=== PATIENT | female | born 1980 | race Caucasian/White ===

== ENCOUNTER 2024-12-11 11:50 | Day surgery (SDC) | payer BC, SELFPAY ==
--- OUTSIDE RECORDS SUMMARY | 2024-11-28 16:39 | XMS_ITS | Patient Health Record ---
Author Organization [facility] Address [address] [place] [address] Care Team Providers Care Crane Mechanic Name Role Phone Neville Smith Primary Care Provider Len Arguello Jr Unavailable Allergies Allergen (clinical drug ingredient) Drug/Non Drug Allergy documented on EMR Reaction Allergy Type Onset Date Status doxycycline Doxycycline rash Drug Allergy Act robi Reason For Referral Referring Provider First Name Neville Referring Provider Last Name Maciel Costa ra Referring Provider Speciality Internal M edicine Referred Organization [facility] Referred Provider Len Recinos Jr Referred Address [address] [facility],[place], [place],[address],[place] Referred Provider Specialty Gastroentero logy General Notes Jennifer Aldridge 2024 11:33:33 AM >REQUESTED AN O BLUE REFERRAL FROM DR NEVILLE NAVAS FOR APPT WITH DR RECINOS ON [phone] Referral Priority Routine Medications Medication SIG (Take, Route, Frequency, Duration) Notes Start Date End Date Status Clindamycin Phos-Benzoyl Perox 1-5 % 1 application Externally Once a day 11/18/2024 Active Multi Vitamin - 1 tablet Orally Once a day Active Tretinoin 0.025 % 1 application in the evening to face Externally Once a day 11/18/2024 Active Contrave 8-90 MG 1 tablet in the morn ing Orally Once a day for 30 day(s) 11/18/2024 Active Levothyroxine Sodium 137 MCG 1 tablet in the morning on an empty stomach Orally Once a day for 30 day(s) 11/18/2024 Active Zepbound 2.5 MG/0.5ML 0.5 mL Subcutaneou s for 30 day(s) 11/18/2024 Active Immunizations Vaccine Route Administration Date Status Comme nts Influenza Unknown 08/01/2023 Administered Social History Tobacco Use: Social History Observation Description Date Details (start date - stop date) Never Smoker NA - NA Tobacco Control (Standard) Question Answer Notes Tobacco use: Nonsmoker AUDIT-C (Standard) Question Answer Notes Did you have a drink contain ing alcohol in the past year? Yes How often did you have a dri nk containing alcohol in the past year? 2 to 4 times a month (2 points) How many drinks did you have on a typical day when you were drinking in the past year? 1 or 2 drinks (0 point) How often did you have six o r more drinks on one occasion in the past year? Never (0 point) Points 2 Interpretation Negative Vital Signs Temperature 98.0 degrees Fahrenheit 11/18/2024 Blood pressure diastolic 01 mm Hg 11/18/2024 Height 64 in 11/18/2024 Blood pressure systolic 001 mm Hg 11/18/2024 Weight 195.6 lbs 11/18/2024 BMI 33.57 kg/m2 11/18/2024 Encounters Encounter Location Date Provider Diagnosis [facility] [address] [facility] [address] [place] [address] 11/18/2024 Len Recinos Jr Rectal bleeding K62.5 Assessments Encounter Date Diagnosis (ICD Code) Assessment Notes Treatment Notes Treatment Clinical Notes Section Notes 11/18/2024 Rectal bleeding (ICD-10 - K62.5) Cyndee is a pleasant 43-year-old woman who is currently doing well. Her history is remarkable for rectal bleeding as described above. This appears to have been self-limited, but because of the recurrent nature of her symptoms, her age, and the risk of underlying inflammatory bowel disease she will undergo colonoscopy. We discussed risks and benefits of the procedure today. She understands these and agrees to proceed. This will be scheduled at her convenience. She is advised to stop GLP-1 usage 1 week before the procedure. She understands this. Plan Of Treatment Future Test Test Name Order Date COLONOSCOPY 11/18/2024 Next Appt Details Provider Name:Len lugo Jr, 12/11/2024 01:00:00 PM, [address] [place] [address] , [place], [place], [phone], Insurance Providers Payer Name Payer Address Payer Phone Subscriber Number Group Number Insured Name Patient Relationship to Insured Coverage Start Date Coverage End Date [facility] [address] [place] [address] [id number] CYNDEE TAN Self - patient is the insured Medical (General) History Medical History History ICD Code Endometriosis Hypothyroidism Elevated body mass index Acne Surgical History Surgery Date(Month/Year) Dental extractions, wisdom teeth 2001 Cholecystectomy, laparoscopic 2024 Partial thyroidectomy, benign thyroid no dule 2013
--- NOTE | 2024-12-10 13:45 | P.CONAN_ITS ---
HPI - Anesthesia Eval Consult details Narrative: 44yo F for Colonoscopy PMFSH Past Medical History Medical History Hypothyroid Endometriosis Surgical History Surgical History Hx laparoscopic cholecystectomy (~2024) H/O partial thyroidectomy (~2013) Social History Social History Are you a primary neonatal intensive care nurse to a significant other at home: No Do you presently have visiting nurse or other home services: No Patient Tobacco Use Status: Never used Tobacco Use of substances other than those prescribed or required for medical reasons: No Have you been hit, kicked, punched, or otherwise hurt by someone within the past year? If so, by whom?: No Are you DNR?: No Advance Directives: No Advance Directives Information Provided: Yes Patient : No (UCG pending) Poor oral hygiene: No Meds Allergies Allergy/AdvReac Type Severity Reaction Status Date / Time doxycycline Allergy Rash Verified 12/10/24 12:41 Home Medications ?Medication ?Instructions ?Recorded ?Confirmed ?Last Taken ?Type clindamycin phosphate 1 % topical topical BID 12/10/24 12/10/24 Unknown History gel levothyroxine 137 mcg tablet 137 mcg PO DAILY 12/10/24 12/10/24 Unknown History naltrexone 8 mg-bupropion 90 mg tab PO 12/10/2412/11 08:00 History tablet,extended release (Contrave) tirzepatide (weight loss) 2.5 mg subcut QWEEK 12/10/24 11/29/24 History mg/0.5 mL subcutaneous pen injector (Zepbound) tretinoin 0.05 % topical cream appl topical BEDTIME Unknown History Assessment and Plan Assessment Anesthesia Assessment: Chart Reviewed
[2024-12-11 12:06] VITALS: BMI 31.8
[2024-12-11 12:20] VITALS: BP 113/64; PULSE 70; RESP 16; TEMP 36.6; O2SAT 99
[2024-12-11 12:25] LABS: UPreg QC Valid YES; Urine Pregnancy NEGATIVE (NEGATIVE)
[2024-12-11] MEDS: Lactated Ringers 1,000 ML 100 ML IVCONT (12:28)
--- NOTE | 2024-12-11 13:06 | MHC.SHP ---
Pre-Procedural Eval Section A - 24 Hr Update-Section A only Date of Service: 12/11/24 The patient is an INPATIENT: No Changes since office visit: No Cold of Flu in the past 2 weeks, No New Medical Problems, No Changes in Medication and No Patient answered all questions The patient has been examined within 24 hours of the surgical procedure. The History & Physical has been completed within 30 days and I have reviewed it.: Yes Section B - Complete if H&P > 30 days Chief Complaint: Hemorrhage of anus and rectum Allergies: Allergies Allergy/AdvReac Type Severity Reaction Status Date / Time doxycycline Allergy Rash Verified 12/10/24 12:41 Plan I have reviewed the history and physical and performed a pertinent physical examination on my patient. No changes have occurred unless specified. Time Spent With Patient Time: Total time managing care of this patient today ____ minutes.
--- NOTE | 2024-12-11 13:34 | HO.ANESPROP2 ---
[facility] Past Medical History Medical History Hypothyroid Endometriosis Functional capacity: independent ambulation Family History Family history of problems with anesthesia: No Surgical History Surgical History Hx laparoscopic cholecystectomy (~2024) H/O partial thyroidectomy (~2013) History of Problems with Anesthesia: No Social History Social History Are you a primary day care worker to a significant other at home: No Do you presently have visiting nurse or other home services: No Patient Tobacco Use Status: Never used Tobacco Use of substances other than those prescribed or required for medical reasons: No Have you been hit, kicked, punched, or otherwise hurt by someone within the past year? If so, by whom?: No Are you DNR?: No Advance Directives: No Advance Directives Information Provided: Yes Patient : No (UCG pending) Poor oral hygiene: No Meds Allergies Allergy/AdvReac Type Severity Reaction Status Date / Time doxycycline Allergy Rash Verified 12/10/24 12:41 Active Medications: Current Medications Lactated Ringer's (Lr) 1,000 mls @ 100 mls/hr IVCONT .Q10H ELIZABETH Last Admin: 12/11/24 12:28 Dose: 100 mls/hr Home Medications ?Medication ?Instructions ?Recorded ?Confirmed ?Last Taken ?Type clindamycin phosphate 1 % topical topical BID 12/10/24 12/10/24 Unknown History gel levothyroxine 137 mcg tablet 137 mcg PO DAILY 12/10/24 12/10/24 Unknown History naltrexone 8 mg-bupropion 90 mg tab PO 12/10/24 12/11/24 08:00 History tablet,extended release (Contrave) tirzepatide (weight loss) 2.5 mg subcut QWEEK 12/10/24 11/29/24 History mg/0.5 mL subcutaneous pen injector (Zepbound) tretinoin 0.05 % topical cream appl topical BEDTIME 12/10/24 Unknown History Exam Height,Weight and Vital Signs: Height 5 ft 4 in Weight 84 kg Last Vital Signs Temp 97.9 F 12/11/24 12:20 Pulse 70 12/11/24 12:20 Resp 16 12/11/24 12:20 BP 113/64 12/11/24 12:20 Pulse Ox 99 12/11/24 12:20 O2 Del Method Room Air 12/11/24 12:20 Pertinent Lab Results Pertinent Lab Results: Laboratory Tests 12/11/24 12:00 Urine Test NEGATIVE Airway Mallampati Class: II TM Dist: >3cm Neck ROM: Full Heart: RRR Lungs: CTA Assessment and Plan Assessment Anesthesia Assessment: Anesthesia Plan Discussed Final Anesthetic Review Family History of Problems with Anesthesia: No History of Problems with Anesthesia: No NPO: Yes ASA Class: II Final Preanesthetic Review: Meds/Allgs Chart Reviewed, Consent Obtained/Reviewed and Anes Risks/Benef Reviewed Patient Risk: Low Procedure Risk: Low Anesthetic Plan Anesthetic Plan: MAC: Disposition: Standard PACU
[2024-12-11 13:44] VITALS: BP 112/62; PULSE 59; RESP 16; TEMP 37; O2SAT 100
[2024-12-11 14:03] VITALS: BP 112/61; PULSE 62; RESP 17; TEMP 36.3; O2SAT 100
--- NOTE | 2024-12-11 14:56 | HO.POSTANES ---
Post Anesthesia Evaluation Post Anesthesia Evaluation Date of Service: 12/11/24 Vital Signs: Vital Signs Temp Pulse Resp BP Pulse Ox O2 Del Method 12/11/24 14:03 97.4 F 62 17 112/61 100 Room Air 12/11/24 13:44 98.6 F 59 16 112/62 100 Room Air 12/11/24 12:20 97.9 F 70 16 113/64 99 Room Air Anesthesia: Monitored Mental Status: Awake Pain Control: Satisfactory Nausea/Vomiting: None Hydration: Adequate Anesthesia-Related Issues: No Anes. Related Issues
--- NOTE | 2024-12-11 21:51 | OP_ITS ---
DATE OF SERVICE: 12/11/2024 SURGEON: Len Velez MD INDICATIONS: Rectal bleeding. PREOPERATIVE DIAGNOSIS: POSTOPERATIVE DIAGNOSIS: PROCEDURE PERFORMED: Colonoscopy to the terminal ileum with snare polypectomy and biopsy. ESTIMATED BLOOD LOSS: COMPLICATIONS: ANESTHESIA: Monitored anesthesia care. ASSISTANTS: SPECIMENS: DESCRIPTION OF PROCEDURE: A history and physical was performed. The risks and benefits of the procedure were explained to the patient. Informed consent was obtained. The patient was placed in the left lateral decubitus position. A digital rectal exam was performed and was found to be normal. The Olympus pediatric video colonoscope was introduced into the rectum and advanced to the cecum. The cecum was identified by transillumination, palpation, and identification of the ileocecal valve. Examination was performed. The scope was removed. She tolerated the procedure well and was taken to the recovery area in stable condition. FINDINGS: The terminal ileum was examined and appeared normal. The visualized colonic mucosa was normal. The quality of the prep was good. A single polyp was identified and removed with a cold snare and biopsy forceps. Random biopsies were obtained from the rectosigmoid where there was nonspecific erythema. Retroflexed examination was normal. IMPRESSION: Colon polyp. RECOMMENDATION: Follow up the biopsy results. MD GARY Bland/JORDYNL / [id number]
== END 2024-12-11 14:30 | disposition home or self-care (01) ==
PROVIDERS: Nurse Practitioner; Visit Provider Internal Medicine Gastroenterology
PROC: 0DJD8ZZ Inspection of Lower Intestinal Tract, Via Natural or Artificial Opening Endoscopic (ICD-10-PCS; CPT 45378; principal; 2024-12-11 13:00)
DX: K62.5 Hemorrhage of anus and rectum (principal); D12.4 Benign neoplasm of descending colon
CPT/HCPCS: 45385; 45380; 81025; 88305; J2003; J2704